=== PATIENT | female | born 1980 | race Caucasian/White ===

== ENCOUNTER 2017-03-27 07:47 | Emergency (ER) | payer BC, OTHER ==
[~2017-03-27] VITALS: Ht 160 cm; Wt 62.0 kg
[~2017-03-27 07:47] MED LIST: MTR600X PO; OXYC5TAB PO; PRENTAB26 PO
[2017-03-27 07:48] VITALS: TEMP 36.8; Ht 160 cm; Wt 62.0 kg
[2017-03-27] MEDS ORDERED: SODIUM CHLORIDE 0.9% 1000ML 1,000 ML IV STA (08:25)
[2017-03-27] MEDS ORDERED: ACETAMINOPHEN 500 MG TAB PO STA (08:25)
[2017-03-27] MEDS ORDERED: ONDANSETRON 4MG OD TAB PO ONE (08:30)
[2017-03-27 08:42] LABS: BASO % 0.4 %; BASO ABS # 0.02 K/uL (0-0.2); COMPLETE YES; EOS % 0.6 %; HEMATOCRIT 43.4 % (37-47); IG% 0.2 %; LYMPH % 18.1 %; LYMPH ABS # 0.91 K/uL (1.2-3.4); MEAN CELL VOLUME 91.9 fL (80-100); MEAN CORPUSCULAR HGB CONC 34.8 g/dl (32-36); MEAN PLATELET VOLUME 10.1 fL (7.4-10.4); MONO % 5.6 %; NEUT % 75.1 %; PLATELET COUNT 234 K/uL (130-400); RED BLOOD COUNT 4.72 M/uL (4.2-5.4); WHITE BLOOD COUNT 5.02 K/uL (4.8-10.8)
[2017-03-27 08:50] LABS: PARTIAL THROMBOPLASTIN RATIO 1.1; PROTHROMBIN TIME (PATIENT) 10.4 SECONDS (9.0-12.0)
[2017-03-27 08:59] LABS: BUN/CREATININE RATIO 9.1 (10-20); CALCIUM 9.2 mg/dl (8.5-10.1); CREATININE 0.91 mg/dl (0.60-1.20); POTASSIUM 4.1 mmol/L (3.5-5.1)
--- NOTE | 2017-03-27 09:11 | DIAGNOSTIC IMAGING REPORT ---
CT HEAD WITHOUT CONTRAST (CT) CLINICAL HISTORY: Severe headache. COMPARISON STUDY: No previous studies for comparison. TECHNIQUE: Axial CT of the brain is performed from the vertex to the skull base. IV contrast was not administered for this examination. A dose lowering technique was utilized adhering to the principles of ALARA. CT DOSE: 614.27 mGy.cm FINDINGS: No intra or extra-axial mass lesions are visualized. There is no CT evidence of acute cortical infarction. There is no evidence of midline shift. There is no acute hemorrhage. No calvarial fractures are visualized. There is no evidence of pathologic ventricular dilatation. There is no evidence of acute sinusitis IMPRESSION: Normal noncontrast head CT. Electronically signed by: Janak Morales M.D. 03/27/2017 9:10 AM Dictated Date/Time: 03/27/2017 9:09 AM
[2017-03-27] MEDS ORDERED: KETOROLAC TROMETHAMINE 30 MG/ML VIAL IV STA (09:16)
[2017-03-27 09:34] LABS: LYME DISEASE AB IGG NEG (NEG); LYME DISEASE AB IGM NEG (NEG)
[2017-03-27] MEDS ORDERED: DEXAMETHASONE SOD INJ 4 MG/ML VIAL IV STA (09:57)
[2017-03-27] MEDS ORDERED: MoRPHine SULFATE 4 MG/ML 1 ML CARP\\VIAL IV STA (09:57)
[2017-03-27] MEDS ORDERED: PROCHLORPERAZINE 5 MG/ML 2 ML VIAL IV STA (09:57)
[2017-03-27 11:18] VITALS: BP 100/57; PULSE 60; O2SAT 96
[2017-03-27] MEDS ORDERED: TRAM-10 PO (11:19)
[2017-03-27] MEDS ORDERED: ONDA4TAB10 SL (11:19)
--- NOTE | 2017-03-27 13:37 | EMERGENCY ROOM VISIT NOTE ---
History First contact with patient: 07:55 Chief Complaint: HEADACHE Stated Complaint: BAD HEADACHE,VOMITING History of Present Illness The patient is a 36 year old female who presents to the Emergency Room with complaints of a severe left-sided and retro-orbital headache that started 3 days ago. The patient reports that on Saturday, she developed a mild headache and nausea. By Saturday evening, she also developed a fever of 100.6F. She took Tylenol without any significant relief of her headache. She awoke Saturday morning with worsening headache. She was seen at the [facility] urgent [facility] [place] where they suggested that she follow-up with the emergency department if her headache was progressively worsening. The patient reports that when she woke up Saturday, her headache was better, but then also had postnasal drip and mild sinus congestion. The patient reports a frequent history of sinusitis, but has not been diagnosed with chronic sinusitis. She has not seen an ENT for her symptoms. The patient now reports severe throbbing pain behind her left eye with nausea and vomiting. She denies any visual disturbance, but does report photosensitivity. She denies any paresthesias/numbness or weakness of the face. She denies any difficulty with speech or swallowing. She does have mild neck pain, but has not noticed any significant worsening pain with movement of the neck. She denies any chest pain, cough or shortness of breath. The patient cannot rule out the possibility of a prior tick bite, but reports that she usually does not spend a lot of time outdoors. She denies any other recent infections or sick contacts. She denies any prior history of migraines or chronic headaches. She rates her discomfort a 10 out of 10. She really has no significant alleviating or aggravating factors for her headache. Review of Systems HEENT: Denies dizziness, visual problems, hearing loss, tinnitus. Denies difficulty swallowing or oral lesions. Otherwise see history of present illness. PULMONARY: Denies cough, shortness of breath, sputum production or hemoptysis. CARDIOVASCULAR: Denies chest pain, palpitations, dyspnea on exertion, orthopnea or peripheral edema. GASTROINTESTINAL: Denies diarrhea, constipation or abdominal pain. The patient has had nausea and vomiting. GENITOURINARY: Denies dysuria, frequency, urgency or nocturia. NEUROLOGIC: Denies history of epilepsy, CVA, TIA or chronic headaches. MUSCULOSKELETAL: Denies history of joint tenderness/swelling. SKIN: Denies rashes or lesions. PSYCHIATRIC: Denies history of depression or mental illness. ENDOCRINE: Denies history of diabetes or thyroid disorders. Past Medical/Surgical History Surgical Problems: (1) History of adenoidectomy Family History Unremarkable Social History Smoking Status: Never Smoker Alcohol Use: occasionally Marital Status: Housing Status: lives with family Occupation Status: employed Current/Historical Medications Scheduled Multivit/Min/Iron/Fol Ac/Pren ( Vitamin), 1 TAB PO HS Ondasetron Odt (Zofran Odt), 4 MG SL Q6H Scheduled PRN Tramadol (Ultram), 1-2 TAB PO Q4H PRN for Pain Physical Exam Vital Signs Date Time Temp Pulse Resp B/P (MAP) Pulse Ox O2 Delivery O2 Flow Rate FiO2 03/27/17 11:18 60 17 100/57 96 03/27/17 10:37 59 16 91/57 98 Room Air 03/27/17 09:18 63 18 114/78 100 Room Air 03/27/17 07:48 36.8 81 18 114/71 99 Room Air Physical Exam CONSTITUTIONAL: Healthy and well nourished. Alert and oriented X 3 with positive affect. GCS 15. The patient appears in moderate discomfort from pain. HEENT: Normocephalic, atraumatic. Pupils equal, round and reactive. Ears and nares are clear. The patient is photophobic, precluding funduscopic exam. No periorbital edema, erythema or ecchymosis noted. OROPHARYNX: Minimal posterior frontal erythema without tonsillar hypertrophy or exudates. NECK: No nuchal rigidity noted. The patient is able to touch her chin with her chest. Negative Kernig, negative Brudzinski sign. LYMPHATICS: No cervical chain adenopathy. RESPIRATORY: Clear to auscultation bilaterally with no wheezing, crackles, rhonchi or stridor. CARDIOVASCULAR: Regular rate and rhythm with no murmurs, rubs or gallops. GASTROINTESTINAL: Bowel sounds present in all quadrants. Soft and nontender to palpation. MUSCULOSKELETAL: Full range of motion of all joints without discomfort. Patient has no tenderness to palpation through the central thoracolumbar spine or paraspinous muscles. INTEGUMENTARY: No rash or other significant dermatologic conditions noted. NEUROLOGIC: Cranial nerves II-XII grossly intact. No focal neurologic deficits noted. Medical Decision & Procedures ER Provider Diagnostic Interpretation: Noncontrast CT of the head does not show any evidence for intracranial bleed, midline shift or mass effect. Radiologist report is as follows: CT HEAD WITHOUT CONTRAST (CT) CLINICAL HISTORY: Severe headache. COMPARISON STUDY: No previous studies for comparison. TECHNIQUE: Axial CT of the brain is performed from the vertex to the skull base. IV contrast was not administered for this examination. A dose lowering technique was utilized adhering to the principles of ALARA. CT DOSE: 614.27 mGy.cm FINDINGS: No intra or extra-axial mass lesions are visualized. There is no CT evidence of acute cortical infarction. There is no evidence of midline shift. There is no acute hemorrhage. No calvarial fractures are visualized. There is no evidence of pathologic ventricular dilatation. There is no evidence of acute sinusitis IMPRESSION: Normal noncontrast head CT. Laboratory Results 03/27/17 08:30 Red Blood Count 4.72, Mean Corpuscular Volume 91.9, Mean Corpuscular Hemoglobin 32.0, Mean Corpuscular Hemoglobin Concent 34.8, Mean Platelet Volume 10.1, Neutrophils (%) (Auto) 75.1, Lymphocytes (%) (Auto) 18.1, Monocytes (%) (Auto) 5.6, Eosinophils (%) (Auto) 0.6, Basophils (%) (Auto) 0.4, Neutrophils # (Auto) 3.77, Lymphocytes # (Auto) 0.91, Monocytes # (Auto) 0.28, Eosinophils # (Auto) 0.03, Basophils # (Auto) 0.02 03/27/17 08:30 Test 03/27/17 08:30 White Blood Count 5.02 K/uL (4.8-10.8) Red Blood Count 4.72 M/uL (4.2-5.4) Hemoglobin 15.1 g/dL (12.0-16.0) Hematocrit 43.4 % (37-47) Mean Corpuscular Volume 91.9 fL (80-100) Mean Corpuscular Hemoglobin 32.0 pg (25-34) Mean Corpuscular Hemoglobin Concent 34.8 g/dl (32-36) Platelet Count 234 K/uL (130-400) Mean Platelet Volume 10.1 fL (7.4-10.4) Neutrophils (%) (Auto) 75.1 % Lymphocytes (%) (Auto) 18.1 % Monocytes (%) (Auto) 5.6 % Eosinophils (%) (Auto) 0.6 % Basophils (%) (Auto) 0.4 % Neutrophils # (Auto) 3.77 K/uL (1.4-6.5) Lymphocytes # (Auto) 0.91 K/uL (1.2-3.4) Monocytes # (Auto) 0.28 K/uL (0.11-0.59) Eosinophils # (Auto) 0.03 K/uL (0-0.5) Basophils # (Auto) 0.02 K/uL (0-0.2) RDW Standard Deviation 41.1 fL (36.4-46.3) RDW Coefficient of Variation 12.1 % (11.5-14.5) Immature Granulocyte % (Auto) 0.2 % Immature Granulocyte # (Auto) 0.01 K/uL (0.00-0.02) Erythrocyte Sedimentation Rate 13 mm/hr (0-21) Prothrombin Time 10.4 SECONDS (9.0-12.0) Prothromb Time International Ratio 1.0 (0.9-1.1) Activated Partial Thromboplast Time 27.9 SECONDS (21.0-31.0) Partial Thromboplastin Ratio 1.1 Anion Gap 5.0 mmol/L (3-11) Est Creatinine Clear Calc Drug Dose 72.0 ml/min Estimated GFR () 95.4 Estimated GFR (Non- 82.3 BUN/Creatinine Ratio 9.1 (10-20) Calcium Level 9.2 mg/dl (8.5-10.1) Lyme Disease IgG Antibody NEG (NEG) Lyme Disease IgM Antibody NEG (NEG) The above labs were reviewed and grossly normal, including sedimentation rate and Lyme screen. Medications Administered Medications (Trade) Dose Ordered Sig/Los Route Start Time Stop Time Status Last Admin Dose Admin Ondansetron HCl (Zofran Odt) 4 mg ONE ONCE PO 03/27/17 08:30 03/27/17 08:31 DC 03/27/17 08:39 4 MG Acetaminophen (Tylenol Tab) 1,000 mg NOW STAT PO 03/27/17 08:25 03/27/17 08:28 DC 03/27/17 08:40 1,000 MG Sodium Chloride 1,000 ml @ 999 mls/hr Q1H1M STAT IV 03/27/17 08:25 03/27/17 09:25 DC 03/27/17 08:40 999 MLS/HR Ketorolac Tromethamine (Toradol Inj) 30 mg NOW STAT IV 03/27/17 09:16 03/27/17 09:17 DC 03/27/17 09:25 30 MG Morphine Sulfate (MoRPHine SULFATE INJ) 4 mg NOW STAT IV 03/27/17 09:57 03/27/17 09:58 DC 03/27/17 10:14 4 MG Prochlorperazine Edisylate (Compazine Inj) 10 mg NOW STAT IV 03/27/17 09:57 03/27/17 09:58 DC 03/27/17 10:13 10 MG Dexamethasone Sodium Phosphate (Decadron Inj) 8 mg NOW STAT IV 03/27/17 09:57 03/27/17 09:58 DC 03/27/17 10:14 8 MG ED Course Patient history and physical exam were performed. Nurse's notes were reviewed. Vital signs were reviewed and normal. The patient does appear in moderate discomfort on initial exam. IV access was established, and labs were drawn. The patient initially refused any stronger analgesics, reporting that she is nearing the end of breast feeding her [id number] son. Patient was administered Tylenol 1 g and Zofran 4 mg orally. Labs were reviewed and normal. Noncontrast CT of the head was also normal. The case was discussed with Dr. Díaz, ED attending physician, who agrees with current workup. The patient was advised of her normal results. At this point, the patient reports persistent nausea and unimproved headache. The patient was then requesting stronger medications. The patient was administered IV morphine, Compazine, Decadron and Toradol. This completely resolved the patient's discomfort. The patient felt well enough to go home. I did discuss several different possibilities with the patient. She was encouraged to alternate ibuprofen and Tylenol for baseline pain relief. She was provided a prescription for Ultram and Zofran ODT as needed for headache and nausea. She was encouraged to follow-up with her PCP within the next 2-3 days for reevaluation, returning to the emergency department for any progressively worsening pain, persistent vomiting or increasing fever. The patient was happy with plan of care, and voiced understanding of all discharge instructions. Medical Decision The patient presents to the emergency department with complaint of a generalized left-sided headache with retro-orbital involvement. Patient denies any prior history of migraines. She is photosensitive, suggestive of migraine. She has no elevated sedimentation rate or temporal tenderness to palpation to suggest temporal arteritis. Her CT scan does not show any evidence for acute CVA or intracranial bleed. The patient is afebrile and has no leukocytosis to suggest significant infectious etiology. Her clinical exam is not suggestive of meningitis. At this point, I do feel that the patient is stable for outpatient follow-up with instructions to return for any progressively worsening symptoms or fever. Medication Reconcilliation Current Medication List: was personally reviewed by me Blood Pressure Screening Patient's blood pressure: Normal blood pressure Impression Primary Impression: Headache Departure Information Prescriptions Ondasetron Odt (ZOFRAN ODT) 4 Mg Tab 4 MG SL Q6H for Nausea, #15 TAB Prov: Ismael Colmenares PA 03/27/17 Tramadol (Ultram) 50 Mg Tab 1-2 TAB PO Q4H Y for Pain, #30 TAB For Initial Treatment Prov: Ismael Colmenares PA 03/27/17 Referrals No Doctor, Assigned (PCP) Patient Instructions My [facility] Problem Qualifiers Primary Impression: Headache Headache type: other headache syndrome Qualified Codes: G44.89 - Other headache syndrome
== END 2017-03-27 11:44 | disposition home or self-care (01) ==
LOC: C.EDB 07:48
DX: R51 Headache (principal)

== ENCOUNTER → 2017-05-28 | Outpatient (CLI) | payer OTHER ==
[~2017-05-28] MED LIST changes: -MTR600X PO; +ONDA4TAB10 SL; -OXYC5TAB PO; +TRAM-10 PO
--- NOTE | 2017-05-28 13:42 | DIAGNOSTIC IMAGING REPORT ---
L FOOT MIN 3 VIEWS CLINICAL HISTORY: 37 years-old Female presenting with LEFT FOOT AND HEEL PAIN. TECHNIQUE: Frontal, oblique, and lateral views left foot were obtained. COMPARISON: None. FINDINGS: No enthesophyte noted at the inferior calcaneus. Os peroneum present. No acute fracture or malalignment. No significant degenerative change. No radiographic evidence of soft tissue swelling. IMPRESSION: No acute osseous injury of the left foot. Electronically signed by: Ahmet Rivero M.D. 05/28/2017 1:41 PM Dictated Date/Time: 05/28/2017 1:40 PM
== END | disposition home or self-care (01) ==
LOC: C.RDSM 11:43
PROVIDERS: ATTEND Internal Medicine
DX: M79.672 Pain in left foot (principal)

== ENCOUNTER → 2018-03-28 | Outpatient (CLI) | payer OTHER ==
[~2018-03-28] MED LIST changes: -ONDA4TAB10 SL; -TRAM-10 PO
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
== END | disposition home or self-care (01) ==
LOC: C.RADBC 14:45
PROVIDERS: ATTEND Family Medicine
DX: R07.89 Other chest pain (principal)

== ENCOUNTER → 2018-04-14 | Outpatient (CLI) | payer OTHER | END | disposition home or self-care (01) | LOC: C.PAPS 18:13 | PROVIDERS: ATTEND Obstetrics & Gynecology | DX: Z12.4 Encounter for screening for malignant neoplasm of cervix (principal) ==